=== PATIENT | female | born 1985 | race Caucasian/White ===

== ENCOUNTER 2016-08-11 08:10 | Emergency (ER) | payer BC ==
[~2016-08-11] VITALS: Ht 170.2 cm; Wt 73.0 kg
[2016-08-11] MEDS ORDERED: HYDROCODONE/ACETAMINOPHEN 5/325MG TABLET PO ONE (09:15)
[2016-08-11 09:27] VITALS: BP 147/90
== END 2016-08-11 12:05 | disposition home or self-care (01) ==
LOC: ER 08:38
DX: S39.012A Strain of muscle, fascia and tendon of lower back, initial encounter (principal); M25.551 Pain in right hip; J45.909 Unspecified asthma, uncomplicated; I10 Essential (primary) hypertension; F41.9 Anxiety disorder, unspecified; V43.52XA Car driver injured in collision with other type car in traffic accident, initial encounter; Y92.488 Other paved roadways as the place of occurrence of the external cause
CPT/HCPCS: 72100; 73502; 81025; 99284